=== PATIENT | male | born 1940 | race African-American/Black ===

== ENCOUNTER 2019-07-07 09:58 | Emergency (ER) | payer OTHER, BC ==
[~2019-07-07] VITALS: Ht 170.2 cm; Wt 63.5 kg
[~2019-07-07 09:58] MED LIST: CLONAZEPAM 1 MG1 M1 PO; KEFLEX500 MG PO; OMEPRAZOLE 20 M20 M1 PO; OMNIPRED5 ML OPHTHALMIC; PRED MILD5 ML OPHTHALMIC; TIMOLOL GL0.5 %/5 ML OPHTHALMIC; TRAMADOL HCL50 MG PO
[2019-07-07] MEDS ORDERED: PLAVIX 75 MG TA75 M1 PO (10:06)
[2019-07-07] MEDS ORDERED: PROSCAR 5MG TABL5 MG PO (10:12)
[2019-07-07] MEDS ORDERED: NEURONTIN 300300 M1 PO (10:13)
[2019-07-07 10:35] LABS: HEMATOCRIT 47.8 % (42.0-52.0); HEMOGLOBIN 15.8 gm/dL (14.0-18.0); MCH 29.5 pg (26.0-34.0); MCV 89.6 fL (80.0-100.0); PLATELET COUNT 209 thou/uL (150-400); RBC 5.34 mil/uL (4.50-6.00); RDW 13.9 % (10.5-14.5); WBC 3.5 thou/uL (4.0-11.0)
[2019-07-07 10:42] LABS: ANION GAP 9 mmol/L (7-16); BUN 13 mg/dL (7-18); CALCIUM 10.4 mg/dL (8.5-10.1); CHLORIDE 106 mmol/L (98-107); CO2 25 mmol/L (21-32); CREATININE 1.1 mg/dL (0.7-1.3); GLUCOSE 90 mg/dL (74-106); POTASSIUM 3.8 mmol/L (3.5-5.1); SODIUM 140 mmol/L (136-145)
[2019-07-07 10:51] LABS: TROPONIN-I <0.06 ng/mL (<0.06)
[2019-07-07 11:12] LABS: ABSOLUTE NEUTROPHILS 2.1 thou/uL (1.4-8.2)
[2019-07-07 12:19] VITALS: BP 140/88
--- NOTE | 2019-07-08 18:07 | EKG ---
[address] [place] [place] [address] ELECTROCARDIOGRAM REPORT Name: SONNY GUZMAN Room #: [facility] [id number] Admission: 07/07/19 Attend Phys: Discharge: 07/07/19 Date of : 42 Report #: [id number] THIS REPORT FOR: //name// [facility] ED Test Date: 2019-07-07 Test Time: 10:12:10 Pat Name: SONNY GUZMAN Department: Room: Gender: [employer] Faculty Member: : [id number] Requested By: Marlon Gray Order Number: [id number] MD: Meir Scales Measurements Intervals [place] Rate: 86 P: 65 MI: 183 QRS: 61 QRSD: 155 T: 16 QT: 396 QTc: 474 Interpretive Statements Sinus rhythm Right bundle branch block Compared to ECG 08/01/2004 09:25:04 No significant change was found Electronically Signed On 07-08-2019 18:07:26 CDT by Meir Scales [email or web address] <ELECTRONICALLY SIGNED> By: Meir Scales MD, [facility] 07/08/19 1807 1012 1012 Meir Scales MD, FACC /EPI
== END 2019-07-07 12:19 | disposition home or self-care (01) ==
LOC: ER 09:58
PROVIDERS: Emergency Medicine
DX: S09.90XA Unspecified injury of head, initial encounter (principal); Z87.891 Personal history of nicotine dependence; Z88.5 Allergy status to narcotic agent; Z88.0 Allergy status to penicillin; Z88.2 Allergy status to sulfonamides; Z79.899 Other long term (current) drug therapy; Z90.89 Acquired absence of other organs; Z86.73 Personal history of transient ischemic attack (TIA), and cerebral infarction without residual deficits; Z79.01 Long term (current) use of anticoagulants; W01.198A Fall on same level from slipping, tripping and stumbling with subsequent striking against other object, initial encounter; Y93.89 Activity, other specified; Y92.091 Bathroom in other non-institutional residence as the place of occurrence of the external cause; Y99.9 Unspecified external cause status